=== PATIENT | female | born 1995 | race African-American/Black ===

== ENCOUNTER 2018-12-18 18:30 | Emergency (ER) | payer OTHER ==
--- NOTE | 2018-12-18 18:36 | PDOC ---
History of Present Illness - General Chief Complaint: Edema Stated Complaint: LEG SWELLING Time Seen by Provider: 12/18/18 18:36 History Source: Patient Exam Limitations: No Limitations - History of Present Illness Initial Comments: 12/21/18 08:46 23F with no stated pmh requesting an ultrasound of her left leg. Pt endorses 2 months of b/l swelling of her LEs which has not worsened nor improved. Has been seen by PCP and was given water pill, which did not work. Endorses b/l thigh pain upon standing that radiates down leg but no back pain. Denies h/o VTE. On Depo shot. No recent travel or surgeries. Denies f/c/n/v/d/dysuria, chest pain, palpitations, sob. No numbness or tingling of the b/l LE. Endorses snoring, denies daytime somnolence Denies PMH Denies regular meds Denies drug allergies Denies etoh, tobacco Denies sexual activity LMP 2 years ago before depo shot Works as security Past History - Past Medical History Allergies/Adverse Reactions: Allergies Allergy/AdvReac Type Severity Reaction Status Date / Time No Known Allergies Allergy Verified 12/18/18 18:37 Home Medications: Ambulatory Orders Depo-Provera 12/18/18 Furosemide [Lasix] 40 mg PO SUSA 12/18/18 - Immunization History Td Vaccination: Yes Immunization Up to Date: Yes - Suicide/Smoking/Psychosocial Hx Smoking Status: No Smoking History: Never smoked Number of Cigarettes Smoked Daily: 0 Review of Systems - Review of Systems Able to Perform ROS?: Yes Comments:: CONSTITUTIONAL: Denies F / C HEENT: Denies headache, lightheadedness, dizziness, changes in vision / hearing , diplopia, blurry vision. RESP: Denies SOB CARD: Denies chest pain, palpitations GI: Denies N / V / D, abdominal pain, bloody stool, inability to tolerate PO : Denies dysuria NEURO: Denies numbness, tingling, weakness Is the patient limited Lithuanian proficient: No *Physical Exam - Physical Exam Comments: GEN: Obese, NAD, AAOx3. HEENT: NC/AT, EOMI, PERRLA. No facial asymmetry. Normal voice. Supple neck w/ FROM. CV: S1/S2, RRR, no m/r/g LUNG: CTAB, no wheezes, crackles, rales, rhonchi. GI: soft, ndnt, +BS, no guarding, no rebound. EXTREMITIES: Diffuse edema of the b/l LE up to the knees w/ 1+ pitting. Patient endorsing "soreness" with palpation of lower legs. SKIN: warm, dry, normal turgor PSYCH: normal mood and affect NEURO: Moving all extremities well. Ambulating well. 5/5 strength of b/l LE. Sensation equal and intact. ED Treatment Course - LABORATORY CBC & Chemistry Diagram: 12/18/18 19:30 12/18/18 19:30 Medical Decision Making - Medical Decision Making 12/18/18 18:53 23F w/ 2mo b/l LE swelling requesting ultrasound. Chronic in nature w/o acute worsening. Neurovascularly intact, benign exam. Unlikely to be DVT or cellulitis given 1. the bilateral nature of the complaint, 2. the chronicity of the complaint, and 3. for cellulitis - there is no erythema or warmth. - labs Likely discharge home w/ PCP f/u and return precautions. *DC/Admit/Observation/Transfer Diagnosis at time of Disposition: Localized swelling of both lower legs - Discharge Dispostion Disposition: HOME Condition at time of disposition: Good Decision to Admit order: No - Referrals Referrals: Blue Barnett [Primary Care Provider] - - Patient Instructions Printed Discharge Instructions: DI for Peripheral Edema -- Bilateral Additional Instructions: Follow up with your primary care doctor regarding your concerns and this Emergency Department visit in the next 7 days. Return to the Emergency Department immediately if you experience any of the following: - worsening of your symptoms - streaking of any of your legs - chest pain, shortness of breath - ANYTHING that concerns you - Post Discharge Activity
[2018-12-18 18:43] VITALS: BMI 65.7
[2018-12-18 19:52] LABS: BASO % 2.1 % (0-2.0); EOS % 2.7 % (0-4.5); HEMATOCRIT 43.3 % (32.4-45.2); HEMOGLOBIN 14.2 GM/dl (10.7-15.3); LYMPH % 35.1 % (8-40); MCH 25.6 pg (25.7-33.7); MCHC 32.8 g/dl (32.0-36.0); MEAN PLT VOLUME 12.6 fl (7.5-11.1); MONO % 6.5 % (3.8-10.2); NEUT % 53.6 % (42.8-82.8); PLATELET COUNT 205 K/MM3 (134-434); RBC 5.56 M/mm3 (3.60-5.2); RDW 12.9 % (11.6-15.6); WHITE BLOOD COUNT 9.7 K/mm3 (4.0-10.8)
[2018-12-18 20:04] LABS: ALBUMIN 3.8 g/dl (3.4-5.0); BILIRUBIN,TOTAL 0.8 mg/dl (0.2-1); CALCIUM 8.9 mg/dl (8.5-10); POTASSIUM 3.7 mmol/L (3.5-5.1); TOT PROT 7.5 g/dl (6.4-8.2)
--- NOTE | 2018-12-18 20:53 | PDOC ---
Documentation entered by Rebeka Santos SCRIBE, acting as scribe for Vadim Soares MD. Vadim Soares MD: This documentation has been prepared by the Tom martinez Xhesika, SCRIBE, under my direction and personally reviewed by me in its entirety. I confirm that the documentation accurately reflects all work, treatment, procedures, and medical decision making performed by me. Attending Attestation - Resident Resident Name: [email or web address] - ED Attending Attestation I have performed the following: I have examined & evaluated the patient, The case was reviewed & discussed with the resident, I agree w/resident's findings & plan, Exceptions are as noted - HPI HPI: 12/18/18 19:20 The patient is a 23 year old male, with no significant PMH of who presents to the emergency department with 2 months of bilateral LE edema and pain. The patient states she endorses b/l thigh pain that radiates down to her ankles when standing. Patient is requesting an ultrasound because she saw her PCP 2 months ago and was placed on lasik with no improvement of symptoms. Patient notes she is not able to fit any of her shoes besides her work shoes. Patient denies any recent travels. Patient denies family history of blood clots. PAST SURGICAL HISTORY: no significant history FAMILY HISTORY: no pertinent history SOCIAL HISTORY: Pt lives with family and is employed. MEDICATIONS: reviewed ALLERGIES: As per nursing notes - Physicial Exam PE: 12/18/18 19:22 General: Well-nourished well-developed individual, no acute distress. (+) morbidly obese HEENT: Throat: Normal, tonsils normal, no erythema or exudate Neck: Supple, no meningeal signs, no lymphadenopathy Eyes::Pupils equal reactive and round, extraocular motion intact Chest: Nontender to palpation Cardiac: S1-S2 normal, regular rate and rhythm, no murmurs rubs or gallops Respiratory: Lungs clear to auscultation bilateral Extremities: Warm, dry, no cyanosis, clubbing. (+) 1/2+ pitting edema to the knees bilaterally. Neurovascular intact. Skin: No rashes Neuro: Alert and oriented x3, nonfocal exam, grossly intact, normal gait Psych: Normal mood and affect - Medical Decision Making 12/18/18 19:19 Assessment and plan: This is a 23-year-old female who is morbidly obese. Patient has had 2 months of bilateral lower extremity edema from the knees down. Patient saw her primary care doctor and was started on a water pill 2 months ago without significant improvement in her symptoms. Patient otherwise has no DVT risk factors denies any shortness of breath chest pain or any other symptoms. Patient said she did not have any blood work done at the time she saw her PMD. Patient's follow-up appointment with her PMD is in 2 months. Patient's exam was normal with the exception of some bilateral hitting edema from the knees down and her obesity. Basic labs were sent to rule out any abnormal renal function 12/18/18 20:51 Reevaluation patient's glucose was mildly elevated and otherwise her lab work was unremarkable. Discussed with patient her elevated blood pressure as well as her elevated glucose and recommended she call her primary care doctor in the morning to be reevaluated and address whether or not she needs to started on some blood pressure and diabetes medicine. Patient discharged will follow-up with her doctor
[2018-12-18 20:56] VITALS: BP 139/91; PULSE 78; TEMP 98.3
[2018-12-18 22:06] LABS: PLATELET ESTIMATE ADEQUATE
== END 2018-12-18 20:56 | disposition home or self-care (01) ==
LOC: FER 18:30
DX: M79.89 Other specified soft tissue disorders (principal)
CPT/HCPCS: 36415; 80053; 85025; 99282-25